=== PATIENT | male | born 1995 | race Two or more races ===

== ENCOUNTER 2019-03-15 08:45 | Emergency (ER) | payer OTHER ==
[~2019-03-15] VITALS: Ht 154.9 cm; Wt 45.6 kg
--- NOTE | 2019-03-15 09:13 | NUR ---
PA AT BEDSIDE TO UPDATE PT ON POC. PT DENIES NEEDS. CALL LIGHT IN REACH.
[2019-03-15 09:27] VITALS: BP 111/71
== END 2019-03-15 09:55 | disposition home or self-care (01) ==
LOC: ED 09:42
DX: T65.891A Toxic effect of other specified substances, accidental (unintentional), initial encounter (principal); R42 Dizziness and giddiness; Y92.89 Other specified places as the place of occurrence of the external cause
CPT/HCPCS: 99283